=== PATIENT | female | born 1985 | race Caucasian/White ===

== ENCOUNTER 2016-10-31 19:50 | Emergency (ER) | payer SELFPAY ==
[2016-10-31 20:21] VITALS: BP 137/92; PULSE 87; RESP 16; TEMP 98.6; O2SAT 98
[2016-10-31] MEDS ORDERED: Oxycodone/Acetaminophen 5/325 mg Tab PO STA (20:45)
[2016-10-31] MEDS ORDERED: Oxycodone/Acetaminophen 5/325 mg Tab ONE (20:48)
--- NOTE | 2016-10-31 20:56 | C.PDOC ---
History Of Present Illness Patient is a 31 year old female who presents to the ER with a complaint left ear pain radiating to her face. Patient reports she has a child at home with similar symptoms. Patient denies fever or chills. Time Seen by Provider: 10/31/16 20:30 Chief Complaint (Nursing): ENT Problem History Per: Patient History/Exam Limitations: None Onset/Duration Of Symptoms: Hrs Current Symptoms Are (Timing): Still Present Symptoms Have Been: Continuous Anticoagulant/Antiplatlet Use?: No Past Medical History Reviewed: Historical Data, Nursing Documentation, Vital Signs Vital Signs: Last Vital Signs Temp 98.6 F 10/31/16 20:18 Pulse 87 10/31/16 20:18 Resp 16 10/31/16 20:18 BP 137/92 H 10/31/16 20:18 Pulse Ox 98 11/01/16 01:20 - Medical History PMH: No Chronic Diseases Surgical History: No Surg Hx Family History: States: No Known Family Hx - Social History Hx Alcohol Use: Yes Hx Substance Use: No - Immunization History Hx Tetanus Toxoid Vaccination: No Hx Influenza Vaccination: Yes Hx Pneumococcal Vaccination: No Review Of Systems Constitutional: Negative for: Fever, Chills ENT: Positive for: Ear Pain (Radiating to face) Physical Exam - Physical Exam Appears: Non-toxic Skin: Normal Color, Warm, Dry Head: Atraumatic, Normacephalic Ear(s): Left: TM Erythema, Right: Normal Oral Mucosa: Moist Throat: Normal, No Erythema Neck: Normal, Supple Chest: Symmetrical, No Tenderness Cardiovascular: Rhythm Regular, No Murmur Respiratory: Normal Breath Sounds, No Rales, No Rhonchi, No Wheezing Neurological/Psych: Oriented x3, Normal Speech, Normal Cognition ED Course And Treatment O2 Sat by Pulse Oximetry: 98 (Room air) Pulse Ox Interpretation: Normal Progress Note: Amoxicillin and percocet administered. Will give Rx, instruct to follow up with PMD and discharge home. Disposition - Disposition Referrals: Colton Joy MD [Staff Provider] - Disposition: HOME/ ROUTINE Disposition Time: 20:54 Condition: STABLE Additional Instructions: Follow up with PMD/ENT within 1-2 days. Return to ED if feel worse. Prescriptions: Amoxicillin 500 mg PO Q8 #30 tab Ibuprofen [Motrin Tab] 600 mg PO Q8 #30 tab oxyCODONE/Acetaminophen [Percocet 5/325 mg Tab] 1 tab PO QID PRN #20 tab PRN Reason: Pain Instructions: Otitis Media (ED) - Clinical Impression Clinical Impression: Otitis media - Scribe Statement The provider has reviewed the documentation as recorded by the Scribfederico Guillermo All medical record entries made by the Scribe were at my direction and personally dictated by me. I have reviewed the chart and agree that the record accurately reflects my personal performance of the history, physical exam, medical decision making, and the department course for this patient. I have also personally directed, reviewed, and agree with the discharge instructions and disposition.
== END 2016-10-31 21:06 | disposition home or self-care (01) ==
LOC: C.ER 19:50
DX: H66.92 Otitis media, unspecified, left ear (principal)